=== PATIENT | female | born 1950 | race Caucasian/White ===

== ENCOUNTER 2018-05-28 13:00 | Outpatient (RCR) | payer BC | END 2018-05-28 14:00 | disposition home or self-care (01) | LOC: OT 13:00 | DX: G61.0 Guillain-Barre syndrome (principal) ==

== ENCOUNTER 2018-08-28 10:30 | Outpatient (RCR) | payer OTHER, MEDICARE, BC | END 2018-08-28 14:04 | disposition home or self-care (01) | LOC: PT 10:30 | DX: G61.0 Guillain-Barre syndrome (principal) | CPT/HCPCS: G8978-GP; G8979-GP ==

== ENCOUNTER 2018-12-29 13:30 | Outpatient (RCR) | payer MEDICARE, BC | END 2019-01-22 | disposition still patient (30) | LOC: PT | DX: M80.051A Age-related osteoporosis with current pathological fracture, right femur, initial encounter for fracture (principal) ==

== ENCOUNTER 2019-02-26 13:22 | Outpatient (RCR) | payer MEDICARE, BC | END 2019-02-26 14:22 | LOC: PT 13:22 | DX: M80.051A Age-related osteoporosis with current pathological fracture, right femur, initial encounter for fracture (principal) ==

== ENCOUNTER 2020-12-08 09:51 | Outpatient (RCR) | payer MEDICARE, BC | END 2021-01-17 17:00 | disposition home or self-care (01) | LOC: PT 09:51 | DX: G61.0 Guillain-Barre syndrome (principal) ==

== ENCOUNTER 2022-06-21 12:33 | Emergency (ER) | payer MEDICARE, BC ==
[2022-06-21] MEDS ORDERED: NEURONTIN300 MG/CAP (12:56)
[2022-06-21] MEDS ORDERED: DITROPAN 5MG TAB5 MG PO (12:56)
[2022-06-21] MEDS ORDERED: SEPTRA DS 8001 TAB PO (12:56)
[2022-06-21] MEDS ORDERED: ESCITALOPRAM10 MG PO (12:57)
[2022-06-21] MEDS ORDERED: FAMOTIDINE20 MG PO (12:57)
[2022-06-21] MEDS ORDERED: ALPRAZOLAM1 MG PO (12:57)
[2022-06-21] MEDS ORDERED: FENOFIBRATE160 MG PO (12:57)
[2022-06-21] MEDS ORDERED: EUTHYROX112 MCG PO (12:57)
[2022-06-21] MEDS ORDERED: SINGULAIR 110 MG/TAB PO (12:58)
[2022-06-21] MEDS ORDERED: ELIQUIS5 MG PO (13:39)
[2022-06-21 14:37] VITALS: BP 117/76
== END 2022-06-21 14:10 | disposition home or self-care (01) ==
LOC: ED 12:33
DX: S81.012A Laceration without foreign body, left knee, initial encounter (principal); S61.412A Laceration without foreign body of left hand, initial encounter; S01.112A Laceration without foreign body of left eyelid and periocular area, initial encounter; M25.551 Pain in right hip; Z91.040 Latex allergy status; Z28.310 Unvaccinated for COVID-19; W18.30XA Fall on same level, unspecified, initial encounter; W22.8XXA Striking against or struck by other objects, initial encounter; Y92.481 Parking lot as the place of occurrence of the external cause

== ENCOUNTER 2022-06-28 14:01 | Outpatient (RCR) | payer MEDICARE, BC ==
[~2022-06-28 14:01] MED LIST: ALPRAZOLAM1 MG PO; DITROPAN 5MG TAB5 MG PO; ELIQUIS5 MG PO; ESCITALOPRAM10 MG PO; EUTHYROX112 MCG PO; FAMOTIDINE20 MG PO; FENOFIBRATE160 MG PO; NEURONTIN300 MG/CAP; SEPTRA DS 8001 TAB PO; SINGULAIR 110 MG/TAB PO
== END 2022-07-18 | disposition home or self-care (01) ==
LOC: PT
DX: M54.50 Low back pain, unspecified (principal); G89.29 Other chronic pain

== ENCOUNTER 2022-08-21 08:00 | Outpatient (RCR) | payer MEDICARE, BC | END 2022-09-18 | disposition home or self-care (01) | LOC: PT | DX: M54.50 Low back pain, unspecified (principal); G89.29 Other chronic pain ==

== ENCOUNTER → 2024-02-24 | Outpatient (REF) | payer MEDICARE, BC ==
[2024-02-24 15:02] LABS: PH-URINE 5.5 (5.0 - 8.0); URINE APPEARANCE CLOUDY (CLEAR); URINE BILIRUBIN NEGATIVE (NEGATIVE); URINE COLOR YELLOW (YELLOW); URINE GLUCOSE NEGATIVE (NEGATIVE); URINE KETONE NEGATIVE (NEGATIVE); URINE NITRATE NEGATIVE (NEGATIVE); URINE PROTEIN(semi-quant) 1+ (NEGATIVE)
[2024-02-24 15:03] LABS: URINE BLOOD 3+ (NEGATIVE); URINE LEUKOCYTE ESTERASE 1+ (NEGATIVE); URINE WBC 31-50 /hpf (0-3)
== END ==
LOC: LAB 14:36
PROVIDERS: Nurse Practitioner Family
DX: N39.0 Urinary tract infection, site not specified (principal)

== ENCOUNTER → 2024-07-28 | Outpatient (CLI) | payer MEDICARE, BC | LOC: LAB 12:49 | DX: Z01.812 Encounter for preprocedural laboratory examination (principal) ==